=== PATIENT | female | born 1965 | race Hispanic/Latino ===

== ENCOUNTER 2019-06-18 23:13 | Emergency (ER) | payer OTHER ==
[~2019-06-18] VITALS: Ht 157.5 cm; Wt 57.6 kg
[2019-06-19] MEDS ORDERED: ENALAPRIL MALEA10 MG PO (00:58)
[2019-06-19] MEDS ORDERED: HYDROCHLOROTHIA25 MG PO (01:03)
--- NOTE | 2019-06-19 21:01 | EKG ---
[facility] [address] [facility] [place] [address] Signed Normal sinus rhythm Possible Left atrial enlargement Incomplete right bundle branch block Borderline ECG No previous ECGs available Confirmed by AMANDA VALLE MD ([id number]) on 06/19/2019 9:01:39 PM Electronically Signed By: AMANDA VALLE MD 06/19/192100 PATIENT NAME: TATIANA MCDERMOTTElyse CORTÉS Electrocardiogram DATE OF : 65 PHYSICIAN: AMANDA VALLE MD REPORT #: [id number] REPORT IS CONFIDENTIAL AND NOT TO BE RELEASED WITHOUT AUTHORIZATION
== END 2019-06-19 01:35 | disposition home or self-care (01) ==
LOC: ED 23:13
DX: I10 Essential (primary) hypertension (principal); Z79.899 Other long term (current) drug therapy
CPT/HCPCS: 71045; 80053; 83735; 84484; 85025; 93005; 93010; 96361; 96374; 96375; 96376; 99285-25; J1200; J1885; J2405; J2765; J7030

== ENCOUNTER → 2020-10-24 | Emergency (ER) | payer OTHER ==
[~2020-10-24] VITALS: Ht 157.5 cm; Wt 57.6 kg
[~2020-10-24] MED LIST: ENALAPRIL MALEA10 MG PO; HYDROCHLOROTHIA25 MG PO; PREDNISONE20 MG PO; TESSALON PERLE100 MG PO; VENTOLIN HFA18 GM INH
--- NOTE | 2020-10-25 00:47 | EKG ---
[facility] [address] [facility] [place], [place] [address] Signed Normal sinus rhythm Normal ECG When compared with ECG of 18-JUN-2019 23:23, No significant change was found Confirmed by SERENITY KEVIN MD ([id number]) on 10/25/2020 12:47:23 AM Electronically Signed By: SERENITY KEVIN MD 10/25/20 0047 PATIENT NAME: BALDEMARORA CORTÉS Electrocardiogram DATE OF : 65 PHYSICIAN: SERENITY KEVIN MD REPORT #: [id number] REPORT IS CONFIDENTIAL AND NOT TO BE RELEASED WITHOUT AUTHORIZATION
== END ==
LOC: ED 17:45
DX: R07.81 Pleurodynia (principal); I10 Essential (primary) hypertension; Z79.899 Other long term (current) drug therapy; Z20.822 Contact with and (suspected) exposure to COVID-19
CPT/HCPCS: 71045; 71260; 80053; 81001; 83690; 83735; 84484; 85025; 85379; 93005; 93010; 99285-25; C9803; J1885; U0003

== ENCOUNTER 2020-10-26 14:02 | Emergency (ER) | payer OTHER ==
[~2020-10-26] VITALS: Ht 157.5 cm; Wt 57.6 kg
[~2020-10-26 14:02] MED LIST changes: -PREDNISONE20 MG PO; -TESSALON PERLE100 MG PO; -VENTOLIN HFA18 GM INH
--- OUTSIDE RECORDS SUMMARY | 2020-10-26 14:10 | XMS ---
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 Jamel has no Care Guidelines for this patient. Micheal VISIT COUNT (12 MO.) 2 [facility] TOTAL 2 NOTE: Visits indicate total known visits. ED/C VISIT TRACKING (12 MO.) [facility] COMPLAINT: - CHEST PAIN, SOB, TWITCHY EYES, DIZZINESS 10/24/2020 17:[address] [facility] [place] TYPE: Emergency COMPLAINT: - CHEST PAIN INPATIENT VISIT TRACKING (12 MO.) No inpatient visits to display in this time frame [id number]
[2020-10-26] MEDS ORDERED: VENTOLIN HFA18 GM INH (20:11)
[2020-10-26] MEDS ORDERED: PREDNISONE20 MG PO (20:11)
[2020-10-26] MEDS ORDERED: TESSALON PERLE100 MG PO (20:11)
--- NOTE | 2020-10-28 08:59 | EKG ---
[facility] [address] [facility] [place] [address] Signed Normal sinus rhythm Incomplete right bundle branch block Borderline ECG When compared with ECG of 24-OCT-2020 17:51, Incomplete right bundle branch block is now present Confirmed by AMANDA VALLE MD ([id number]) on 10/28/2020 8:59:37 AM Electronically Signed By: AMANDA VALLE MD 10/28/20 0859 PATIENT NAME: MCDERMOTTORA Electrocardiogram DATE OF : 65 PHYSICIAN: AMANDA VALLE MD REPORT #: [id number] REPORT IS CONFIDENTIAL AND NOT TO BE RELEASED WITHOUT AUTHORIZATION
== END 2020-10-26 20:27 | disposition home or self-care (01) ==
LOC: ED 14:02
DX: R07.89 Other chest pain (principal); J40 Bronchitis, not specified as acute or chronic; I10 Essential (primary) hypertension; Z79.899 Other long term (current) drug therapy
CPT/HCPCS: 71045; 80053; 84484; 85025; 93005; 93010; 94640; 96374; 99285-25; A9270; J1100; J1885

== ENCOUNTER 2022-04-09 23:16 | Emergency (ER) | payer OTHER ==
[~2022-04-09] VITALS: Ht 157.5 cm; Wt 57.6 kg
[~2022-04-09 23:16] MED LIST changes: +PREDNISONE20 MG PO; +TESSALON PERLE100 MG PO; +VENTOLIN HFA18 GM INH
[2022-04-09] MEDS ORDERED: BETAMETHASONE D15 G2 TOP (23:34)
[2022-04-09] MEDS ORDERED: CETIRIZINE HCL10 MG PO (23:34)
[2022-04-10] MEDS ORDERED: PREDNISONE20 MG PO (02:20)
== END 2022-04-10 02:47 | disposition home or self-care (01) ==
LOC: ED 23:16
DX: J20.9 Acute bronchitis, unspecified (principal); L50.9 Urticaria, unspecified; I10 Essential (primary) hypertension; Z20.822 Contact with and (suspected) exposure to COVID-19; Z79.899 Other long term (current) drug therapy
CPT/HCPCS: 36415; 71045; 80053; 81001; 83880; 85025; 87502; 96365; 96375; 99285-25; J0696; J2930; J7030; U0003

== ENCOUNTER 2022-05-01 17:28 | Inpatient (IN) | payer OTHER ==
[~2022-05-01] VITALS: Ht 157.5 cm; Wt 55.9 kg
[~2022-05-01 17:28] MED LIST changes: +BETAMETHASONE D15 G2 TOP; +CETIRIZINE HCL10 MG PO
--- OUTSIDE RECORDS SUMMARY | 2022-05-01 17:30 | XMS ---
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 Micheal VISIT COUNT (12 MO.) 2 [facility] TOTAL 2 NOTE: Visits indicate total known visits. ED/UCC VISIT TRACKING (12 MO.) 05/01/2022 17:29 [facility] [place] TYPE: Emergency COMPLAINT: - COLD SYMPTOMS 04/09/2022 23:17 [facility] [place] TYPE: Emergency COMPLAINT: - COUGH, BODY ACHES DIAGNOSES: - Weakness - Other prison (current) drug therapy - Contact with and (suspected) exposure to COVID-19 - Acute bronchitis, unspecified - Essential (primary) hypertension - Urticaria, unspecified INPATIENT VISIT TRACKING (12 MO.) No inpatient visits to display in this time frame [email or web address]
--- NOTE | 2022-05-01 23:02 | NUR ---
PATIENT ARRIVED TO THE FLOOR VIA STRETCHER. PATIENT ABLE TO SLEF TRANSFER FROM STRETCHER TO BED. PATIENT IS ON 2L VIA NC. ADMISSION COMPLETED. VITALS TAKEN AND RECORDED. PATIENT HUNGARIAN SPEAKING BUT DOES UNDERSTAND MINIMAL POLISH. PATIENTS IV'S X2 FLUSHED AND SL PER ORDER. PATIENT PLACED ON A CPOX. PATIENTS DAUGHTER HELPS TRANSLATE. ALL QUESTIONS ANSWERED. LAB PRESENT IN ROOM. PATIENT PROVIDED WITH FRESH ICE WATER.
--- NOTE | 2022-05-01 23:42 | NUR ---
PT RECEIVED FROM ER VIA STRETCHER. PT ALERT AND ORIENTED. RESP EVEN ET UNLABORED ON O2 @ 2L NC. PT AMBULATORY. PT SAMRAICH SPEAKING DAUGHTER AT BEDSIDE FOR TRANSLATION. PT HAS NO SWALLOWING ISSUES NOTED EATING SNACK TRAY. PT HAS NO COMPLAINTS OF SOB OR PAIN AT THIS TIME. CALL LIGHT WITHIN REACH. INFORMED TO CALL FOR ASSISTANCE.
--- NOTE | 2022-05-02 02:25 | NUR ---
PT LYING IN BED RESTING QUIETLY. RESP EVEN ET UNLABORED O2@ 2L NC. PT CITIZEN OF [place] SPEAKING ONLY DAUGHTER IN ROOM TO TRANSLATE. PT HAS DRY NONPRODUCTIVE COUGH OFFERED PRN COUGH MED PT REFUSED. PT HAS NO COMPLAINTS OF PAIN OR DISTRESS AT THIS TIME.
--- NOTE | 2022-05-02 06:10 | NUR ---
PT RESTING QUIETLY IN BED RESP EVEN ET UNLABORED. NO ACUTE DISTRESS THIS SHIFT DAUGHTER REMAINS AT BEDSIDE.
--- NOTE | 2022-05-02 07:10 | NUR ---
REPORT RECEIVED FROM IRINA MENARD, ALL QUESTIONS ANSWERED. PT RESTING AWAKE IN BED. DENIES NEEDS AT THIS TIME. CALL LIGHT IN REACH.
[2022-05-02] MEDS ORDERED: ENALAPRIL MALEA20 MG PO (08:22)
--- NOTE | 2022-05-02 08:44 | NUR ---
MORNING ASSESSMENT COMPLETE. CRACKLES HEARD THROUGHOUT ALL LUNG FEILDS. PT ON 2L NC WITH CPOX IN PLACE, O2 SAT 90-92% AT THIS TIME. PT EATING BREAKFAST. DAUGHTER AT BEDSIDE, AGREEABLE TO SOME TRANSLATION. PT C/O COUGH, GIVEN PRN MEDICATION, SEE EMAR. PT DENIES FURTHER NEEDS AT THIS TIME. CALL LIGHT IN REACH AND DAUGHTER REAMINS AT BEDSIDE.
--- NOTE | 2022-05-02 09:17 | NUR ---
PT SITTING UP IN BED. DAUGHTER PRESENT IN ROOM. VITALS AND IS AND OS COMPLETE. PT DECLINED RESTROOM NEEDS. ICE WATER PROVIDED TO PT. NO NEEDS, CALL LIGHT WITHIN REACH
--- NOTE | 2022-05-02 10:45 | NUR ---
DR VALLE REQUESTED MEDICAL RECORDS FROM [facility] WELL THE SKIN PHOTOS THEY DOCUMENTED THERE. I CALLED THE CLINIC AND REQUESTED BOTH, SHE STATED SHE WOULD FAX THE ONLY VISIT SINCE FEBRUARY OVER [facility]. WILL NOTIFY SOON IT ARRIVES.
--- NOTE | 2022-05-02 11:14 | NUR ---
PT C/O COUGH, GIVEN PRN MEDICATION SEE EMAR. CPOX 91% ON 2LNC. PT SITTING UP IN CHAIR, FAMILY AT BEDSIDE. PT DENIES FURTHER NEEDS AT THIS TIME. CALL [facility] ESQUIVEL. PHARMACIST IN ROOM AT THIS TIME.
--- NOTE | 2022-05-02 11:32 | NUR ---
MED REC COMPLETE
--- NOTE | 2022-05-02 11:53 | NUR ---
HEALTH INFORMATION TECH REPORTED PT UP TO RESTROOM AND BACK TO CHAIR. OS SAT 83% ON 2LNC UPON RETURNING TO CHAIR. IN ROOM TO SEE PT, O2 SAT 89% ON 2LNC. O2 UP TO 3L, O2 SAT 91% WILL CONTINUE WITH PLAN OF CARE.
--- NOTE | 2022-05-02 13:09 | NUR ---
MD AWARE OF INCREASED O2 NEEDS WITH ACTIVITY AND URINE OUTPUT. NO NEW ORDERS AT THIS TIME.
--- NOTE | 2022-05-02 14:30 | NUR ---
Spoke with pt and her spouse with the [place] interpreter. Pt and spouse were answer questions through the interpreter translator. They live in a house with 4 steps in town. House is 1 story. Pt did not have issues in the past getting in and out of the home, but feels it would be difficult at this time. She lives with her spouse and two daughters, 18 and 22. They will all assist her. Pt does not use any DME. She is currently on 3 L of 02. Reviewed process for 02 qualifier on day of dc, obtaining, and setting up 02. Discussed [employer] and [place] and pt would like to use [employer] from [facility] if she is in need of 02 on dc. She does not currently have a pcp as Dr Neal from [facility] was her pcp. She was not reassigned a Dr. when Dr. Neal left. She would like a pcp and I will cont [facility] and the [facility] to check for pcp availability. She does not care which. Pt plans on dc to home when cleared medically. She will need a pulmonogy referral per Dr. Mcnulty in [phone] report. Charge nurse is working on this. Called [facility] and they are not taking pts at this time. They are scheduling into July. Called the [facility]ician [facility], chart faxed to [facility] to review and check for a pcp. She will notify CM tomorrow or Friday.
--- NOTE | 2022-05-02 15:39 | NUR ---
PT UP TO RESTROOM, O2 UP TO 5LNC FOR ACTIVITY. PT BACK TO BED, O2 SAT 85% ON 5LNC. GUIDED THROUGH DEEP BREATHING, O2 SAT UP TO 92%, PT BACK DOWN TO 3LNC WITH O2 SAT 91%. PT DENIES FURTHER NEEDS AT THIS TIME. CALL LIGHT IN REACH.
--- NOTE | 2022-05-02 18:14 | NUR ---
PT RESTING IN BED AT 51[facility]. I&O'S DOCUMENTED. MALE IN ROOM WITH PT WATCHING TV. REFRESHED WATER, NO OTHER NEEDS AT THIS TIME. CALL LIGHT IN REACH.
--- NOTE | 2022-05-02 19:10 | NUR ---
REPORT RECEIVED FROM DERIAN COYLE. PT LAYING IN BED WATCHING TV. PT RESPONDS WHEN ADDRESSED. PT REPROTS NO NEEDS AT THIS TIME. CALL LIGHT IN REACH.
--- NOTE | 2022-05-02 19:39 | NUR ---
PT REQUESTING SOMETHING FOR DIARRHEA AND COUGH. PRN IMODIUM AND TESSALON PERLES ADMINISTERED. PT TAKES PO MEDICAITON WITH NO ISSUES. PT REPORTS NO OTHER NEDDS AT THIS TIME. CALL LIGHT IN REACH. FAMILY MEMBERS IN ROOM.
--- NOTE | 2022-05-02 20:23 | NUR ---
CLARIFIED WITH DR VALLE ON IF pt NEEDS TO BE IN TB PRECAUTIONS D/T PENDING TB GOLD PLUS TEST. PER DR VALLE, NO NEED FOR TB PRECAUTIONS, TESTS ARE ROUTINE. PRIMARY RN UPDATED AND AWARE.
--- NOTE | 2022-05-02 21:03 | NUR ---
IN TO ADMINISTER MEDICATIONS, SEE MAR. PT TAKES PO MEDICATIONS WITH NO ISSUES. PT REQUESTING TO USE RESTROOM. INCREASED O2 TO 5L NC. PT AMBULATED WITH STEADY GAIT TO AND FROM RESTROOM BACK TO BED. DECREASED O2 TO 3L NC O2 SATS AT 90%. ASSESSMENT COMPLETE. PT REPORTS NO PAIN AT THIS TIME. LUNG SOUNDS CRACKLES THROUGHOUT. BOWEL TONES ACTIVE. PT REPORTS PAIN IN LLQ WITH COUGHING, BUT DENIES PAIN OR TENDERNESS WITH PALPATION OF ABD. VITALS AND I&Os COMPLETE. FRESH WATER PROVIDED. PT REPORTS NO OTHER NEEDS AT THIS TIME CALL LIGHT IN REACH. FAMILY IN ROOM.
--- NOTE | 2022-05-02 22:22 | NUR ---
IN TO ADMINISTER MEDICATION, SEE MAR. PT SITTING UP IN BED WATCHING TV. 2 FAMILY MEMBERS IN ROOM. PT REPORTS NO OTHER NEEDS AT THIS TIME. CALL LIGHT IN REACH.
--- NOTE | 2022-05-02 23:42 | NUR ---
IN TO ROUND ON PT. PT LAYING IN BED ON LEFT SIDE AND LIFTS HEAD TO LOOK AT DOOR WHEN THIS RN OPENS PTs DOOR. PT DENIES ANY NEEDS AT THIS TIME. AND LAYS BACK DOWN IN BED. DAUGHTERS IN ROOM. CALL LIGHT IN REACH.
--- NOTE | 2022-05-03 03:29 | NUR ---
PT OPENS EYES WHEN DOOR OPENS. WHEN ASKED IF PT NEEDS ANYTHING PT DENIES NEEDS AT THIS TIME. CALL LIGHT IN REACH.
--- NOTE | 2022-05-03 05:30 | NUR ---
IN TO ADMINISTER MEDICATIONS, SEE MAR. PT REQUESTING COUGH MEDICATION, PRN COUGH MEDICATION ADMINISTRED, SEE MAR. ASSESSMENT COMPLETE. LUNG SOUNDS CRACKLES THROUGHOUT ALL LOBES. BOWEL TONES ACTIVE. PT DENIES ANY PAIN AT THIS TIME. COUGHING NOTED. PT ON 3L NC WITH O2 SATS AT 90%. VITALS AND I&Os COMPLETE. PT DENIES ANY OTHER NEEDS AT THIS TIME. CALL LIGHT IN REACH.
--- NOTE | 2022-05-03 07:55 | NUR ---
RECIEVED SHIFT REPORT. PT RESTING IN BED, AWAKE. DENIES FURTHER NEEDS. CALL LIGHT WITHIN REACH. FAMILY AT BEDSIDE.
--- NOTE | 2022-05-03 09:47 | NUR ---
MORNING ASSESSMENT COMPLETE. PT AWAKE IN BED, DAUGHTER AT BEDSIDE. CRACKLES HEART IN LEFT UPPER LOBES AND BILAT LOWER LOBES. DENIES PAIN AND SOB. 3L NC IN PLACE, SPO2 91% AT REST. DENIES FURTHER NEEDS. DENIES PAIN. CALL LIGHT WITHIN REACH
--- NOTE | 2022-05-03 10:07 | NUR ---
SET PT UP FOR SHOWER, COVERED IVS, NEW GOWN, SOCKS, GOMEZ, SOAPS, SHAMPOO, ORAL CARE. DAUGHTER IN ROOM TO ASSIST PT. 4LNC DURING SHOWER. LINEN CHANGED.
--- NOTE | 2022-05-03 12:55 | NUR ---
pt in recliner, in room. states feels sob. spo2 90% on 4L NC. SUGGESTED PRN NEB TREATMENT, PT AGREED. RT CALLED.
--- NOTE | 2022-05-03 13:42 | NUR ---
PATIENT IN BED AFTER MEAL. VITALS AND I/O'S COMPLETED. CALL LIGHT WITHIN REACH.
--- NOTE | 2022-05-03 14:07 | NUR ---
PT RESTING IN BED, FAMILY AT BEDSIDE. PT STATS PRN NEB TREATMENT HELPED. SPO2 90% ON 4L AT REST. DENIES ANY DISCOMFORT. CALL LIGHT WITHIN REACH
--- NOTE | 2022-05-03 14:13 | NUR ---
ENCOURAGED ORAL FLUID INTAKE, PT DENIES NEEDING TO VOID URINE AT THIS TIME. WILL CONTINUE TO MONITOR.
--- NOTE | 2022-05-03 14:35 | NUR ---
PATIENT WALKED TO BATHROOM AND BACK TO BED. DID WELL AND BREATHS WERE UNLABORED. FAMILY IN ROOM, CALL LIGHT WITHIN REACH.
--- NOTE | 2022-05-03 14:42 | NUR ---
AFTERNOON ASSESSMENT COMPLETE. NO NEW CHANGES SINCE MORNING ASSESSMENT. PT REMAINS ON 4L NC SPO2 90%. PT DENIES SOB AT THIS TIME. FAMILY AT BEDSIDE. CALL LIGHT WITHIN REACH.
--- NOTE | 2022-05-03 15:14 | NUR ---
AFTERNOON ASSESSMENT COMPLETE. NO NEW CHANGES SINCE MORNING ASSESSMENT. DENIES FURTHER NEEDS.
--- NOTE | 2022-05-03 16:41 | NUR ---
PT UP WALKING HALLWAY WITH RT AND THIS RN. PT SPO2 87% ON 3L NC. TITRATED PT TO 5L NC, SPO2 90%.
--- NOTE | 2022-05-03 16:52 | NUR ---
ASKED TO DO AN O2 EVAL WHILE PATIENT UP AND WALKING. PT WAS ON 3L/MIN NC WHILE SITTING ON THE SIDE OF THE BED FOR SATS OF 95. PT WALKED LENGTH OF HALLWAY AND SATS DROPED TO 87 ON 3L/MIN. INCREASED TO 4L/MIN AND SATS DID NOT INCREASE. INCREASED TO 5L/MIN FOR SPO2 OF 90%. PT DID A SECOND LOOP AND THEN WENT TO THE RESTROOM. WHEN PT CAME OUT AND AFTER SETTLED INTO HOSPITAL BED, PT'S SATS WERE 79% WITH A GOOD WAVE FORM. IT TOOK PATIENT 3 MINUTES TO RECOVED AND SATS TO INCREASE TO 91%. AT THIS TIME O2 WAS DECREASED TO 4L/MIN. PT STATED SHE DID NOT FEEL SOB OR LIGHT HEADED DURING THE WALK. PT DID HAVE A VISIBLE INCREASED WOB WITH HER RR AT THE END OF 22. IF PT IS TO WALK AGAIN, I WOULD RECOMMEND 5L/MIN AND ONLY ONE LOOP IN THE HALLWAY.
--- NOTE | 2022-05-03 17:41 | EKG ---
[facility] [address] [place] [address] Signed Sinus tachycardia Left axis deviation Minimal voltage criteria for LVH, may be normal variant ( Eder product ) Abnormal ECG When compared with ECG of 26-OCT-2020 14:15, Vent. rate has increased BY 60 BPM Incomplete right bundle branch block is no longer present Confirmed by AMANDA VALLE MD ([id number]) on 05/03/2022 5:41:00 PM Electronically Signed By: AMANDA VALLE MD 05/03/22 1741 PATIENT NAME: ORA MCDERMOTT Electrocardiogram DATE OF : 65 PHYSICIAN: AMANDA VALLE MD REPORT #: [id number] REPORT IS CONFIDENTIAL AND NOT TO BE RELEASED WITHOUT AUTHORIZATION
--- NOTE | 2022-05-03 19:05 | NUR ---
REPORT RECEIVED FROM DERIAN HERNANDEZ. PT SITTING UP IN BED WATCHING TV. IN ROOM. PT REQUESTING SOMETHING FOR DIARRHEA. CALL LIGHT IN REACH.
--- NOTE | 2022-05-03 19:24 | NUR ---
IN TO ADMINISTER PRN MEDICATION, SEE MAR. PT REQUESTING MORE WATER, WATER PROVIDED. PT REPROTS NO OTHER NEEDS AT THIS TIME. CALL LIGHT IN REACH. HUDBAND IN ROOM.
--- NOTE | 2022-05-03 20:29 | NUR ---
IN TO ADMINISTER MEDICATIONS, SEE MAR. NEWMAN, RT IN ROOM. PT SITTING UP IN BED. IN ROOM. PT REQUESTING COUGH MEDICAITON, PRN COUGH MEDICATION ADMINISTERED, SEE MAY. PT TAKES PO MEDICATIONS WITH NO ISSUES. ASSESSMENT COMPLETE. LUNG SOUNDS CRACKLES THROUGHOUT ALL LOBES. RR AT 34. PT ON 3.5L NC WITH O2 SATS AT 90%. BOWEL TONES ACTIVE. PT REPORTS NO PAIN AT THIS TIME. PT DENIES TOILETING NEEDS AT THIS TIME. VITALS AND I&Os COMPLETE. PT DENEIS ANY OTHER NEEDS AT THIS TIME. CALL LIGHT IN REACH.
--- NOTE | 2022-05-03 21:47 | NUR ---
IN TO ADMINISTER MEDICATION, SEE MAR. PT SITTING UP IN BED. RR 32 ON 3.5L NC WITH O2 SATS AT 90%. PT DENIES FEELING SOB. PT DENEIS TOILETING NEEDS AT THIS TIME. PT REQUESTING PULSE OX TO BE MOVED TO LEFT HAND, NEW PULSE OX PLACED ON L HAND. PT REQUESTING ANOTHER PILLOW, PILLOW PROVIDED. PT REPORTS NO OTHER NEEDS AT THIS TIME. CALL LIGHT IN REACH. DAUGHTER IN ROOM.
--- NOTE | 2022-05-03 22:02 | NUR ---
THIS RN CALLED DR. VALLE TO UPDATE ABOUT PTs RR IN THE 30's. MD AWARE. NO NEW ORDERS AT THIS TIME.
--- NOTE | 2022-05-03 23:09 | NUR ---
IN TO ANSWER CALL LIGHT. PT REQUESTING TOILETING. PT O2 INCREASED TO 5L NC. PT AMBULATES FROM BED TO RESTROOM, BRUSHES TEETH AND BACK TO BED WITH A STEADY GAIT. PTs O2 SATS ONCE BACK IN BED ARE AT 87% ON 5L NC AND INCREASE TO 94 ON 5L NC. PT DENIES FEELING SOB, DIZZY OR LIGHT HEADED. TITRATED O2 BACK TO 3L NC AND PTs O2 MAINTAINS AT 93%. PT REPORTING HEADACHE 8/ AND REQUESTING PRN TYLENOL.
--- NOTE | 2022-05-03 23:15 | NUR ---
IN TO ADMINISTER PRN PAIN MEDICATION, SEE MAR. PT TAKES PO MEDICATION WITH NO ISSUES. O2 SATS REMAIN AT 93% ON 3.5L NC. PT REPORTS NO OTHER NEEDS AT THIS TIME. CALL LIGHT IN REACH. DAUGHTER IN ROOM.
--- NOTE | 2022-05-04 00:16 | NUR ---
IN TO ROUND ON PT. PT LAYING IN BED WITH EYES CLOSED. RR 26. O2 SATS 96% ON 3.5L NC. RR EVEN AND UNLABORED. DAUGHTER IN ROOM SITTING UP IN CHAIR. DAUGHTER DENIES ANY NEEDS AT THIS TIME. NO NEEDS IDENTIFIED FOR PT AT THIS TIME. CALL LIGHT IN REACH.
--- NOTE | 2022-05-04 01:18 | NUR ---
IN TO ROUND ON PT. PT LAYING IN BED SEMI-FOWLERS WITH EYES CLOSED. RR EVEN AND UNLABORED. RR 22 WITH O2 SATS AT 95% ON 3.5L NC. DAUGHTER ON COUCH. NO NEEDS IDENTIFIED AT THIS TIME. CALL LIGHT IN REACH.
--- NOTE | 2022-05-04 03:31 | NUR ---
IN TO ROUND ON PT. PT LAYING IN BED SEMI-FOWLERS. RR EVEN AND UNLABORED. RR COUNT OF 22. O2 SATS AT 95% ON 3.5L NC. NO NEEDS IDENTIFIED AT THIS TIME. CALL LIGHT IN REACH. DAUGHTER IN ROOM ON COUCH.
--- NOTE | 2022-05-04 05:13 | NUR ---
IN TO COMPLETE VITALS AND I&Os. PT LAYING IN BED WITH EYES CLOSED RR EVEN AND UNLABORED. PT AWAKENS WHEN ADDRESSED. ASSESSMENT COMPLETE. LUNG SOUNDS CRACKLES THROUGHOUT ALL LOBES. BOWEL TONES ACTIVE. PT DENIES ANY PAIN AT THIS TIME. PT DENIES TOILETING NEEDS AT THIS TIME. WATER PROVIDED. PT DENIES ANY OTHER NEEDS AT THIS TIME. CALL LIGHT IN REACH. DAUGHTER IN ROOM ON COUCH SLEEPING. RR EVEN AND UNLABORED.
--- NOTE | 2022-05-04 06:00 | NUR ---
IN TO ADMINISTER MEDICATION, SEE MAR. PT LAYING IN BED WITH EYES CLOSED RR EVEN AND UNLABORED. PT AWAKENS WHEN ADDRESSED. PT DENIES TOILETING NEEDS AT THIS TIME. CALL LIGHT IN REACH. PT DENIES ANY OTHER NEEDS AT THIS TIME. DAUGHTER IN ROOM ON COUCH.
--- NOTE | 2022-05-04 06:18 | NUR ---
THIS RN TALKED TO DR. VALLE ABOUT PTs OUTPUT. MD AWARE. NO NEW ORDERS AT THIS TIME.
--- NOTE | 2022-05-04 07:27 | NUR ---
recieved shift report. pt laying in bed, awake. denies further needs. call light within reach. call light within reach
--- NOTE | 2022-05-04 09:41 | NUR ---
MORNING ASSESSMENT COMPLETE. PT RESTING IN BED, ON 4L NC, SP02 90-92%. CONTIUNES TO NEED O2 TITRATED WITH ACTIVITY TO THE BATHROOM. CRACKLES HEARD IN RIGHT UPPER AND BILAT LOWER LOBES. DENIES DIZZINESS, BUT STATES SOB ONLY WITH ACTIVITY. CPOX IN PLACE. CALL LIGHT WITHIN REACH. DENIES FURTHER NEEDS. FAMILY AT BEDSIDE.
--- NOTE | 2022-05-04 15:20 | NUR ---
AFTERNOON ASSESSMENT COMPLETE. PT IN RECLINER, NO NEW CHANGES SINCE MORNING ASSESSMENT. ON 3.5L NC SPO2 92%. PT WAS ABLE TO WALK HALLWAY. WITH OCCUPANCY SPECIALIST. OCCUPANCY SPECIALIST REPORTED ON 5L NC SPO2 DECREASED TO 88%. TALKED TO PT ABOUT COUGH AND SUGGESTED TESSLON PEARLS, PT AGREED TO TAKING PRN MEDICATION. DENIES PAIN, SOB, DIZZINESS. CALL LIGHT WITHIN REACH. FAMILY AT BEDSIDE.
--- NOTE | 2022-05-04 16:07 | NUR ---
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 NO NEW ORDERS AT THIS TIME.
--- NOTE | 2022-05-04 19:00 | NUR ---
REPORT RECEIVED FROM DERIAN HERNANDEZ. JOVITA ARREAGA IN ROOM ASSISTING PT FROM CHAIR TO BED. NO NEEDS FROM THIS RN AT THIS TIME.
--- NOTE | 2022-05-04 21:01 | NUR ---
IN TO ADMINISTER MEDICATIONS, SEE MAR. PT SITTING UP IN BED WATCHING TV. RR EVEN AND UNLABORED. PT TAKES PO MEDICATION WITH NO ISSUES. VITALS COMPLETE. ASSESSMENT COMPLETE. LUNG SOUNDS CRACKLES THROUGHOUT ALL LOBES. BOWEL TONES ACTIVE. PT DENIES ANY PAIN AT THIS TIME. OFFERED PT BREATHING TREATMENT PT ACCEPTE. RT CALLED. PT DENIES ANY TOILETING NEEDS AT THIS TIME. PT DENIES ANY NEEDS AT THIS TIME. CALL LIGHT IN REACH. DAUGHTER IN ROOM AND DENIES ANY NEEDS.
--- NOTE | 2022-05-04 21:59 | NUR ---
IN TO ROUND ON PT. PT LAYING IN BED. RR EVEN AND UNLABORED. RR COUNT OF 24 WITH O2 SATS AT 92% ON 3.5L NC. DAUGHTER IN ROOM DENIES ANY NEEDS AT THIS TIME. NO NEEDS IDENTIFIED AT THIS TIME. CALL LIGHT IN REACH.
--- NOTE | 2022-05-04 23:07 | NUR ---
IN TO ROUND ON PT. PT AWAKENS AND TURNS HEAD TOWARDS DOOR. PT STATES "I AM OKAY." ON OTHER NEEDS IDENTIFIED AT THIS TIME. CALL LIGHT IN REACH. PT LAYING IN BED RR EVEN AND UNLABORED.
--- NOTE | 2022-05-04 23:53 | NUR ---
IN TO ROUND ON PT. PT LAYING IN BED WITH EYES CLOSED. PT TURNS HEAD TOWARDS DOOR WHEN DOOR OPENS. PT STATES "I AM OKAY." NO NEEDS REPORTED AT THIS TIME. CALL LIGHT IN REACH. RR EVEN AND UNLABORED.
--- NOTE | 2022-05-05 00:18 | NUR ---
IN TO ROUND NO PT. PT LAYING IN BED WITH EYES CLOSED. RR EVEN AND UNLABORED. DAUGHTER IN ROOM. NO NEEDS IDENTIFIED AT THIS TIME. CALL LIGHT IN REACH.
--- NOTE | 2022-05-05 01:32 | NUR ---
IN TO ROUND ON PT. PT LAYING IN BED WITH EYES CLOSED. RR EVEN AND UNLABORED. NO NEEDS IDENTIFIED AT THIS TIME. CALL LIGHT IN REACH. DAUGHTER IN ROOM.
--- NOTE | 2022-05-05 04:50 | NUR ---
IN TO ROUND ON PT. PT SITTING UP IN BED REQUESTING TOILETING. INCREASED PT TO 5L NC. SBA FROM BED TO RESTROOM AND BACK. PT HAS A STEADY GAIT. UPON GETTING BACK INTO BED PTs O2 SATS DECREASED TO 83%. PT RECOVERED TO 90% AFTER SITTING IN BED AND TAKING DEEP BREATHS THROUGH HER NOSE. TITRATED 02 BACK TO 3.5L NC AND PT MAINTAINS AT 90%. ASSESSMENT COMPLETE. LUNG SOUNDS CRACKLES IN CARMEN, LLL, AND RLL. CLEAR IN RUL. BOWEL TONES ACTIVE. PT DENIES ANY PAIN AT THIS TIME. OFFERED PT NEB TX, PT DECLINES AT THIS TIME. VITALS AND I&Os COMPLETE. PT REPORTS NO OTHER NEEDS AT THIS TIME. CALL LIGHT IN REACH.
--- NOTE | 2022-05-05 05:22 | NUR ---
IN TO ROUND ON PT. PT REQUESTING NEB TX. RT CALLED.
--- NOTE | 2022-05-05 07:44 | NUR ---
RECIEVED SHIFT REPORT. PT RESTING IN BED, EYES CLOSED, BREATHING EVEN AND UNLABORED. CALL LIGHT WITHIN REACH. FAMILY AT BEDSIDE
--- NOTE | 2022-05-05 09:47 | NUR ---
MORNING ASSESSMENT COMPELTE. PT RESTING IN BED, AWAKE. RATES HEAD PAIN 8/10, PRN PAIN MEDICATION GIVEN (PER EMAR). FINE CRACKLES HEARD BILAT LOWER LOBES. ON 4L NC, SPO2 91%. DENIES SOB AND DIZZINESS. FAMILY AT BEDSIDE. CALL LIGHT WITHIN REACH.
--- NOTE | 2022-05-05 11:20 | NUR ---
PT RESTING IN BED, DENIES PAIN, FAMILY AT BEDSIDE. CALL LIGHT WITHIN REACH
--- NOTE | 2022-05-05 13:30 | NUR ---
PT RESTING IN BED, FAMILY AT BEDSIDE, DENIES PAIN AND SOB. CALL LIGHT WITHIN REACH
--- NOTE | 2022-05-05 14:40 | NUR ---
AFTERNOON ASSESSMENT COMPLETE. PT RESTING IN BED, AWAKE. DENIES PAIN OR SOB. PT ON 3.5L NC, SPO2 91%. PT ACCIDENTLY PULLED IV. NEW IV STARTED BY THIS RN. CALL LIGHT WITHIN REACH. FAMILY AT BEDSIDE
--- NOTE | 2022-05-05 14:53 | NUR ---
PATIENT IN ROOM ON BED. VITALS AND I/O'S COMPLETED. FAMILY IN ROOM. CALL LIGHT WITHIN REACH.
--- NOTE | 2022-05-05 18:26 | NUR ---
PT RESTING IN BED, AWAKE. FAMILY AT BEDSIDE. DENIES ANY NEEDS AT THIS TIME. CALL LIGHT WITHIN REACH
--- NOTE | 2022-05-05 19:10 | NUR ---
REPORT RECEIVED FROM DERIAN HERNANDEZ. PT SITTING UP IN BED WATCHING TV WITH MULTIPLE FAMILY MEMBERS IN THE ROOM. PT DENEIS ANY NEEDS WHEN OFFRED. CALL LIGHT IN REACH. FAMILY DENEIS ANY NEEDS.
--- NOTE | 2022-05-05 20:50 | NUR ---
V/S TAKEN AND CHARTED. DENIES ANY NEEDS AT THIS TIME. FAMILY IN THE ROOM.
--- NOTE | 2022-05-05 21:35 | NUR ---
PATIENT CALLED TO USE THE BATHROOM. PATIENT VOIDED UNMEASURED. THIS RELIGIOUS EDUCATION TEACHER PUT THE HAT ON THE TOILET AND NOTIFIED PATIENT TO BE ABLE TO MEASURE HER VOIDINGS.
--- NOTE | 2022-05-05 21:47 | NUR ---
IN TO ADMINISTER MEDICATIONS, SEE MAR. PT TAKES PO MEDICATION WITH NO ISSUES. ASSESSMENT COMPLETE. LUNG SOUNDS CRACKLES THROUGHOUT ALL LOBES. BOWEL TONES ACTIVE. PT DENIES ANY PAIN AT THIS TIME. PT ON 4L NC WITH O2 SATS AT 91% WITH RR COUNT OF 32. OFFERED PT NEB TX. PT ACCEPTS. RT CALLED. PT DENEIS ANY OTHER NEEDS AT THIS TIME. CALL LIGHT IN REACH. DAUGHTER IN ROOM.
--- NOTE | 2022-05-05 23:34 | NUR ---
IN TO ROUND ON PT. PT LAYING IN BED WITH EYES CLOSED RR EVEN AND UNLABORED. PT TURNS HEAD FROM LEFT TO RIGHT KEEPING EYES CLOSED. NO NEEDS IDENTIFIED AT THIS TIME. CALL LIGHT IN REACH. DAUGHTER IN ROOM.
--- NOTE | 2022-05-05 23:56 | NUR ---
IN TO ROUND ON PT. PT LAYING IN BED SEMI-FOWLERS RR EVEN AND UNLABORED. RR COUNT OF 26. NO NEEDS IDENTIFIED AT THIS TIME. CALL LIGHT IN REACH. DAUGHTER IN ROOM ON COUCH.
--- NOTE | 2022-05-06 00:50 | NUR ---
IN TO ROUND ON PT. PT LAYING IN BED SEMI-FOWLERS. EYES CLOSED RR EVEN AND UNLBOARED. RR COUNT OF 26 WITH O2 SATS AT 93% ON 4L NC. NO NEEDS IDENTIFIED AT THIS TIME. CALL LIGHT IN REACH. DAUGHTER ON COUCH.
--- NOTE | 2022-05-06 02:30 | NUR ---
IN TO ROUND ON PT. PT RESTING IN BED WITH EYES CLOSED. RR EVEN AND UNLBORED. RR COUNT OF 22 WITH O2 SATS AT 94% ON 4L NC. NO NEEDS IDENTIFIED AT THIS TIME. CALL LIGHT IN REACH. DAUGHTER ON COUCH.
--- NOTE | 2022-05-06 03:39 | NUR ---
IN TO ROUND ON PT. PT LAYING IN BED WITH EYES CLOSED AND OPENS EYES WHEN THIS RN ENTERS ROOM. ASKED PT IF SHE NEEDS ANYTHING PT STATES "NO, I AM OKAY." O2 SATS AT 95% ON 4L NC. CALL LIGHT IN REACH.
--- NOTE | 2022-05-06 04:40 | NUR ---
IN TO ROUND ON PT. PT LAYING IN BED WITH EYES CLOSED. RR EVEN AND UNLABORED. NO NEEDS IDENTIFIED AT THIS TIME. CALL LIGHT IN REACH. DAUGHTER ON COUCH.
--- NOTE | 2022-05-06 05:47 | NUR ---
IN TO ADMINISTER MEDICATION, SEE MAR. PT LAYING IN BED WITH EYES CLOSED RR EVEN AND UNLABORED. PT AWAKENS AND RESPONDS WHEN ADDRESSED. ASSESSMENT COMPLETE. PT DENIES ANY PAIN AT THIS TIME. LUNG SOUNDS CRACKLES THROUGHOUT. DIMINISHED IN RLL. BOWEL TONES ACTIVE. PT DENIES TOILETING NEEDS AT THIS TIME WHEN OFFERED. PT DENIES ANY OTHER NEEDS AT THIS TIME. CALL LIGHT IN REACH. DAUGHTER ON COUCH.
--- NOTE | 2022-05-06 07:43 | NUR ---
REPORT RECIEVED FROM DERIAN HERNANDEZ. PT HAD JUST RETURNED FROM BATHROOM. DENIES NEEDS AT THIS TIME.
--- NOTE | 2022-05-06 09:22 | NUR ---
PT SITTING UPRIGHT IN BED WITH DTR IN CHAIR. LUNGS TIGHT AND COARSE THROUGHOUT. PT DENIES PAIN OR NEEDS ATT. ATE BREAKFAST.
--- NOTE | 2022-05-06 11:55 | NUR ---
PT DAUGHTERS BROUGHT HER TREATS FROM [employer] IN THE BOX. DENIES NEEDS OR CONCERNS ATT.
--- NOTE | 2022-05-06 14:28 | NUR ---
NO CHANGE IN DISCHARGE PLAN. PATIENT IS TO BE TRANSFERED TO [facility] WHEN A BED IS OPEN.
--- NOTE | 2022-05-06 14:59 | NUR ---
CHECKED ON PT. ONE OF HER DTRS IN ROOM. PT DENIES ANY NEEDS OR CONCERNS ATT. STATES HER HEADACHE IS BETTER.
--- NOTE | 2022-05-06 17:24 | NUR ---
PT UP TO RESTROOM. DENIES PAIN ATT. DENIES ANY CONCERNS.
--- NOTE | 2022-05-06 19:30 | NUR ---
REPORT RECEIVED FROM JADEN. pt SITTING IN CHAIR. FAMILY IN ROOM. 4L OXYGEN BY NC IN PLACE. CPOX ON. pt DENIES ANY REQUESTS.
--- NOTE | 2022-05-06 21:00 | NUR ---
ANSWERED BATHROOM LIGHT. PATIENT IS BACK IN BED FROM BATHROOM. DAUGHTER IN THE ROOM. NO FURTHER NEEDS AT THIS TIME.
--- NOTE | 2022-05-06 21:58 | NUR ---
pt SITTING UP IN BED AWAKE, WATCHING TV. 4L OXYGEN BY NC IN PLACE, SPO2 93%. CPOX ON. ASSESSMENT COMPLETE. PRN COUGH MEDICATION ADMINISTERED. DAUGHTER IN ROOM. SANDWICH BOX PROVIDED FOR pt. CALL LIGHT IN REACH.
--- NOTE | 2022-05-06 23:48 | NUR ---
pt RESTING IN BED, NO DISTRESS NOTED. BREATHING UNLABORED. CPOX IN PLACE.
--- NOTE | 2022-05-07 02:13 | NUR ---
CHECKED ON pt. RESTING IN BED WITH EYES CLOSED. 3L OXYGEN BY NC IN PLACE. SPO2 WNL. NO DISTRESS NOTED. HOB ELEVATED. BREATHING EQUAL AND UNLABORED. DAUGHTER ORA IN ROOM.
--- NOTE | 2022-05-07 05:46 | NUR ---
pt AWAKE, SITTING UP IN BED. DENIES SOB. 4L OXYGEN BY NC IN PLACE. SPO2 WNL. ASSESSMENT COMPLETE. LUNG SOUNDS COARSE, DIMINISHED BILTATERALLY LOWER LOBES. DENIES TOILETING NEEDS. COFFEE PROVIDED. NO ADDITIONAL REQUESTS.
--- NOTE | 2022-05-07 06:00 | NUR ---
PATIENT CALLED TO USE THE BATHROOM. SBA. PATIENT VOIDED 350 DARK URINE. PATIENT IS BACK IN BED. CPOX BACK ON. DAUGHTER IN THE ROOM.
--- NOTE | 2022-05-07 07:26 | NUR ---
Recieved report from security shift supervisor nurse.
--- NOTE | 2022-05-07 09:05 | NUR ---
PATIENT SITTING UP IN BED, JUST FINISHED BREAKFAST. PT UP TO THE BATHROOM. HAT WAS IN THE TOILET BUT PATIENT REMOVED BEFORE USING THE RESTROOM. UNABLE TO MEASURE URINE OUTPUT AT THIS VOID. BOWEL MOVEMENT, SOFT BUT FORMED. FAMILY IN ROOM WITH PATIENT. BED CHANGED. PT USING NASAL CANNUAL AT 5L. UNABLE TO CHART IV CARE. FLUSHED BOTH LEFT AC AND RIGHT WRIST WITH NS.
--- NOTE | 2022-05-07 11:38 | NUR ---
PATIENT SITTING UP IN BED, FAMILY IN ROOM WATCHING TV. PT DENIES ANY CARES AT THIS TIME. CALL LIGHT WITHIN REACH, NASAL CANNUAL ON.
--- NOTE | 2022-05-07 13:19 | NUR ---
PATIENT IS UP IN THE SHOWER SITTING IN THE CHAIR WITH 6L OF OXYGEN ON TO KEEP HER OXYGEN STATS UP. PT REQUESTED A SHOWER.
--- NOTE | 2022-05-07 13:20 | NUR ---
PATIENT CALLED AND ASKED TO GET INTO SHOWER. THIS CLOTH MERCERIZER BACK TENDER CHECKED WITH PRIMARY RN. THIS CLOTH MERCERIZER BACK TENDER IN TO ASSIST PATIENT WITH SHOWER. O2 TURNED UP TO 6L NC UPON RN REQUEST. PATIENT AMBULATED INTO BATHROOM, SBA. DAUGHTER ASSISTED PATIENT IN SHOWER, THIS CLOTH MERCERIZER BACK TENDER IN ROOM CHANGING LINENS. RN IN ROOM SHORTLY AFTER. CALL LIGHT IN REACH. NO FURTHER NEEDS AT THIS TIME.
--- NOTE | 2022-05-07 13:32 | NUR ---
CALL TO DR. KEVIN TO LET HER KNOW ABOUT PATIENTS INCREASING OXYGEN NEEDS TO 7L FOR 89-90%.
--- NOTE | 2022-05-07 14:25 | NUR ---
PATIENT SITTING IN BED WITH FAMILY. FAMILY IS GETTING VERY RESTLESS AND WOULD LIKE TO KNOW MORE INFORMATION IN REGARDS TO THE TRANSFER. THEY ARE WONDERING WHY WE ARE NOT TRANSFERING HER TO ANOTHER HOSPITAL. HAS BEEN ADVISED OF THIS.
--- NOTE | 2022-05-07 15:52 | NUR ---
PATIENT RESTING IN BED WITH FAMILY NEXT TO HER. PT DENIES ANY NEEDS. SHE WOULD LIKE TO GET SOME REST. CALL LIGHT IN REACH. PT DENIES WARM BLANKET.
--- NOTE | 2022-05-07 16:36 | NUR ---
PATIENT ASLEEP IN BED. FAMILY WITH HER IN THE ROOM.
[2022-05-07] MEDS ORDERED: FAMOTIDINE20 MG PO (17:30)
[2022-05-07] MEDS ORDERED: SOLU-MEDRO125 MG/21 IV (17:30)
[2022-05-07] MEDS ORDERED: BENZONATATE100 MG PO (17:31)
--- NOTE | 2022-05-07 18:03 | NUR ---
PATIENT IS WAITING EMS FOR TRANSFER. FAMILY IN ROOM WITH PATIENT.
--- NOTE | 2022-05-07 18:40 | NUR ---
Patient went with EMS at 1830 to transfer to [facility]. Pt's daughter went with EMS to help translate as patient is primarly somali speeking. Pt still has 2 IVs in, left AC, and right wrist. Belongings went with patient/family. This nurse tried to call and give report to [facility]. They are not able to take report until after 1900.
--- NOTE | 2022-05-07 19:15 | NUR ---
REPORT GIVEN TO DERIAN DORANTES AT [facility] IN REGARDS TO PATIENTS TRANSFER.
== END 2022-05-07 18:30 | DRG 196 ==
LOC: ED 17:28 → MS 17:30
PROVIDERS: ADMIT Internal Medicine; ATTEND Internal Medicine
DX: J84.9 Interstitial pulmonary disease, unspecified (principal); J96.01 Acute respiratory failure with hypoxia; D80.1 Nonfamilial hypogammaglobulinemia; E87.6 Hypokalemia; I10 Essential (primary) hypertension; Z20.822 Contact with and (suspected) exposure to COVID-19; K75.2 Nonspecific reactive hepatitis; R19.7 Diarrhea, unspecified; Z79.52 Long term (current) use of systemic steroids; Z79.899 Other long term (current) drug therapy
CPT/HCPCS: 36415; 71045; 71260; 80053; 81001; 82085; 82553; 83605; 85025; 85610; 85651; 85730; 86038; 86140; 86431; 87040; 87502; 93005; 93010; 94640; 94761; 94762; A9270; C9803; J1650; J2930; Q9967; U0003